=== PATIENT | male | born 1995 | race Caucasian/White ===

== ENCOUNTER 2017-06-29 04:20 | Emergency (ER) | payer MEDICAID, OTHER ==
[~2017-06-29] VITALS: Ht 185.4 cm; Wt 90.9 kg
[~2017-06-29 04:20] MED LIST: IBUP-1542 PO
[2017-06-29 04:34] VITALS: Ht 185.4 cm; Wt 90.9 kg
[2017-06-29] MEDS ORDERED: TRAM50TA2 PO (08:19)
[2017-06-29] MEDS ORDERED: IBUP-1542 PO (08:19)
--- NOTE | 2017-06-29 09:01 | ERD ---
ER Documentation Chief Complaint Date/Time DATE: 06/29/17 TIME: 08:56 Chief Complaint PATIENT STATES PC OF SKIN RIPPED OFF WHILE HAVING SEX TONIGHT. HPI "This is a 21-year-old male presenting to emergency department for penile laceration. Patient states he was having sex earlier tonight when a "piece of skin" ripped off. Patient states he developed sudden onset pain and bleeding. Bleeding was controlled prior to arrival. No active bleeding. No fevers. No dysuria or difficulty urinating. ROS All systems reviewed and are negative except as per history of present illness. Medications Home Meds Active Scripts Tramadol HCl (Tramadol HCl) 50 Mg Tablet, 50 MG PO Q4 Y for PAIN, #10 TAB Prov:LINDA SHEPARD NP 06/29/17 Ibuprofen* (Motrin*) 600 Mg Tab, 600 MG PO Q6, #20 TAB Prov:LINDA SHEPARD NP 06/29/17 Ibuprofen* (Motrin*) 600 Mg Tab, 600 MG PO Q6H Y for PAIN AND OR ELEVATED TEMP, #30 TAB Prov:SANGEETHA ADKINS NP 05/14/16 Reported Medications [none] Unknown Strength No Conflict Check 05/14/16 Allergies Allergies: Coded Allergies: No Known Allergy (Unverified , 05/14/16) PMhx/Soc Medical and Surgical Hx: pt denies Medical Hx, pt denies Surgical Hx History of Surgery: No Hx Alcohol Use: No Hx Substance Use: No Hx Tobacco Use: No Smoking Status: Never smoker Physical Exam Vitals Vital Signs Date Time Temp Pulse Resp B/P Pulse Ox O2 Delivery O2 Flow Rate FiO2 06/29/17 04:34 98.4 76 18 134/76 96 Physical Exam Const: No acute distress, alert Head: Atraumatic Skin: No petechiae or rashes Back: No midline or flank tenderness Ext: No cyanosis, or edema Neur: Awake and alert Psych: Normal Mood and Affect : Small 1cm laceration to left penile head. able to pull back foreskin without difficulty or pain. No paraphimosis or phimosis. No testicular swelling or erythema. Procedures/MDM MDM: This is a 21-year-old male presenting to the emergency department for penile laceration. Area was cleansed with normal saline on the ED. Bleeding was controlled. No active bleeding while in the ED. There was a 1 cm small linear laceration to penile head. There is no paraphimosis or phimosis. No testicular swelling or erythema. No drainage. No fevers or chills. Vital signs are stable. Patient diagnosis is penile laceration. Low suspicion for abscess or deep space infection. Patient is appropriate for outpatient management and instructed to follow-up with urologist in the next 2-3 days for reassessment. Patient will be given prescription for ibuprofen 600 mg #20 and tramadol 50 mg #10. Return to ED for any high fever, chest pain, difficulty breathing, shortness breath, wheezing, vomiting, diarrhea, abdominal pain or any new or worsening symptoms. Patient verbalizes understanding. All questions answered at discharge. Disclaimer: Inadvertent spelling and grammatical errors are likely due to EHR/ dictation software use and do not reflect on the overall quality of patient care. Also, please note that the electronic time recorded on this note does not necessarily reflect the actual time of the patient encounter. Departure Diagnosis: Primary Impression: Penile laceration Encounter type: initial encounter Qualified Code: S31.21XA - Laceration of penis, initial encounter Condition: Stable Patient Instructions: Laceration, Small/Superficial, Not Sutured Referrals: MONO KUMAR MD, ANDY Y DEVENDRA, GALESH L. MD [facility] YOU HAVE RECEIVED A MEDICAL SCREENING EXAM AND THE RESULTS INDICATE THAT YOU DO NOT HAVE A CONDITION THAT REQUIRES URGENT TREATMENT IN THE EMERGENCY DEPARTMENT. FURTHER EVALUATION AND TREATMENT OF YOUR CONDITION CAN WAIT UNTIL YOU ARE SEEN IN YOUR DOCTORS OFFICE WITHIN THE NEXT 1-2 DAYS. IT IS YOUR RESPONSIBILITY TO MAKE AN APPOINTMENT FOR FOLOW-UP CARE. IF YOU HAVE A PRIMARY DOCTOR --you should call your primary doctor and schedule an appointment IF YOU DO NOT HAVE A PRIMARY DOCTOR YOU CAN CALL OUR PHYSICIAN REFERRAL HOTLINE AT IF YOU CAN NOT AFFORD TO SEE A PHYSICIAN YOU CAN CHOSE FROM THE FOLLOWING [facility] CLINICS [facility] [address] [facility] [address] [facility] [address] [facility] [address] [facility] [facility] [address] [facility] [facility] [address] [facility]. [facility] YOU HAVE RECEIVED A MEDICAL SCREENING EXAM AND THE RESULTS INDICATE THAT YOU DO NOT HAVE A CONDITION THAT REQUIRES URGENT TREATMENT IN THE EMERGENCY DEPARTMENT. FURTHER EVALUATION AND TREATMENT OF YOUR CONDITION CAN WAIT UNTIL YOU ARE SEEN IN YOUR DOCTORS OFFICE WITHIN THE NEXT 1-2 DAYS. IT IS YOUR RESPONSIBILITY TO MAKE AN APPOINTMENT FOR FOLOW-UP CARE. IF YOU HAVE A PRIMARY DOCTOR --you should call your primary doctor and schedule and appointment IF YOU DO NOT HAVE A PRIMARY DOCTOR YOU CAN CALL OUR PHYSICIAN REFERRAL HOTLINE AT . IF YOU CAN NOT AFFORD TO SEE A PHYSICIAN YOU CAN CHOSE FROM THE FOLLOWING [facility] INSTITUTIONS: [facility] [address] [place] [address] [facility] [address] [place], [place] [id number] [place] [address] [address] [place] [address] Additional Instructions: Call your primary care doctor TOMORROW for an appointment during the next 2-3 days.See the doctor sooner or return here if your condition worsens before your appointment time. Return to ED for any high fever, chest pain, difficulty breathing, shortness breath, wheezing, vomiting, diarrhea, abdominal pain or any new or worsening symptoms. LINDA SHEPARD NP Jun 29, 2017 09:01
== END 2017-06-29 08:41 | disposition home or self-care (01) ==
LOC: FTE 04:20
DX: S31.21XA Laceration without foreign body of penis, initial encounter (principal); X58.XXXA Exposure to other specified factors, initial encounter; Y92.9 Unspecified place or not applicable
CPT/HCPCS: 99283

== ENCOUNTER 2017-09-11 05:35 | Day surgery (SDC) | payer OTHER ==
[2017-09-11] VITALS (10 sets, daily range): BP systolic 127–140; BP diastolic 61–80; PULSE 62–90; RESP 18–20; Ht 185.4 cm; Wt 90.6 kg
[~2017-09-11] VITALS: Ht 185.4 cm; Wt 90.6 kg
[~2017-09-11 05:35] MED LIST changes: +TRAM50TA2 PO
[2017-09-11] MEDS ORDERED: BUPIVACAINE 0.5% (SDV) 30 ML INJ ONE (07:02)
[2017-09-11] MEDS ORDERED: CEFAZOLIN 1 GM INJ ONE (07:19)
[2017-09-11] MEDS ORDERED: NEOSTIGMINE 3 MG/3 ML SYRINGE ONE (07:19)
[2017-09-11] MEDS ORDERED: ROCURONIUM 50 MG INJ ONE (07:19)
[2017-09-11] MEDS ORDERED: GLYCOPYRROLATE 0.4 MG INJ ONE (07:19)
[2017-09-11] MEDS ORDERED: PROPOFOL 20 ML ONE (07:19)
--- NOTE | 2017-09-11 07:19 | HPN ---
Date/Time of Note Date/Time of Note DATE: 09/11/17 TIME: 07:19 Interval H&P Admission Note Pt. seen H&P reviewed: No system changes MONO KUMAR MD Sep 11, 2017 07:19
[2017-09-11] MEDS ORDERED: DEXAMETHASONE 4 MG/ML 1 ML INJ ONE (07:20)
[2017-09-11] MEDS ORDERED: ONDANSETRON 4 MG INJ ONE (07:20)
[2017-09-11] MEDS ORDERED: MIDAZOLAM 1 MG/ML 2 ML INJ ONE (07:20)
[2017-09-11] MEDS ORDERED: FENTAnyl 50 MCG/ML VIAL ONE (07:20)
[2017-09-11] MEDS ORDERED: MIDAZOLAM 1 MG/ML 2 ML INJ IV PRN (08:00)
[2017-09-11] MEDS ORDERED: MEPERIDINE 25 MG INJ IV PRN (08:00)
[2017-09-11] MEDS ORDERED: FENTAnyl 50 MCG/ML VIAL IV PRN ×3 (08:00)
[2017-09-11] MEDS ORDERED: ONDANSETRON 4 MG INJ IV PRN (08:00)
[2017-09-11] MEDS ORDERED: HYDROmorphONE (0.2 MG/ML) 10ML SYG IV PRN ×3 (08:00)
[2017-09-11] MEDS ORDERED: LABETALOL HCL 20MG INJ IV PRN (08:00)
[2017-09-11] MEDS ORDERED: OXYCODONE/ACETAMINOPHEN (5/325) TAB PO PRN ×2 (08:00)
[2017-09-11] MEDS ORDERED: ALBUTEROL 0.083% (NEB) 2.5 MG/3 ML AMP HHN PRN (08:00)
[2017-09-11] MEDS ORDERED: hydrALAzine 20 MG INJ IV PRN (08:00)
[2017-09-11] MEDS ORDERED: DIPHENHYDRAMINE 50 MG INJ IV PRN (08:00)
[2017-09-11] MEDS ORDERED: TRIMETHOBENZAMIDE 100 MG/ML VIAL IM PRN (08:00)
[2017-09-11] MEDS ORDERED: IPRATROPIUM (NEB) 0.5 MG/2.5 ML AMP HHN PRN (08:00)
[2017-09-11] MEDS ORDERED: EPHEDrine SULFATE 50 MG/5 ML SYG IV PRN (08:00)
--- NOTE | 2017-09-11 08:47 | OPR ---
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 Estimated Blood Loss: 10 - 50 ml's Transfusion none Specimen Foreskin Grafts/Implants none Complications none Pt Condition Post Procedure: stable Disposition: PACU Indications Phimosis and the scar tissue on the foreskin Procedure Description The patient was brought to the operating room. Time out was done. The patient was identified by his name, date and the procedure. Patient was given 2 g of Ancef IV at the start of the procedure. They hair around the base of the penis was shaved. The genital area was then prepped and draped in usual sterile manner. The foreskin at the level of the hemphill was marked then incised. the patient was injected with half percent Marcaine around the base of the penis for local anesthesia before any incision was done. the foreskin was then retracted and another incision was made one a centimeter proximal to the hemphill. The skin between the 2 incisions was removed. All the bleeders were electrocoagulated and good hemostasis was obtained. The subcutaneous tissue was approximated with 3-0 Vicryl interrupted sutures at the 9,12, 3 and 6 o' clock position. The incision was then closed with 4-0 and 3-0 Vicryl interrupted sutures. Then . The incision was then covered was a Vaseline gauze and a Jose R. Patient was transferred to the recovery room in stable and satisfactory condition. MONO KUMAR MD Sep 11, 2017 08:47
[2017-09-11] MEDS ORDERED: HYDROCODONE/APAP (5/325) TAB PO PRN (09:00)
== END 2017-09-11 10:48 | disposition home or self-care (01) ==
LOC: SDS 05:35 → SUR 05:35
PROVIDERS: ATTEND Urology
DX: N47.1 Phimosis (principal)
CPT/HCPCS: 54161; 88304; J0690; J1100; J2250; J2405; J2710; J3010; Z7512; Z7610